=== PATIENT | male | born 1965 | race Hispanic/Latino ===

== ENCOUNTER 2016-12-22 10:46 | Emergency (ER) | payer SELFPAY ==
[2016-12-22 11:17] LABS: #Eosinphils 0.2 thou/uL (0.0-0.7); #Monocytes 0.6 thou/uL (0.11-0.59); #Neutrophils 5.6 thou/uL (1.40-6.50); %Basophils 0.2 % (0.0-1.0); %Eosinophils 1.9 % (0.0-10.0); %Lymphocytes 31.8 % (21.0-51.0); %Monocytes 6.4 % (0.0-10.0); Hematocrit 42.7 % (42.0-52.0); Mean Platelet Volume 7.5 fL (7.4-10.4); Red Blood Cell (RBC) Count 4.94 mill/uL (4.70-6.10); White Blood Cell (WBC) Count 9.3 thou/uL (4.8-10.8)
[2016-12-22 11:45] LABS: Troponin I Less than 0.010 ng/mL (< 0.028)
[2016-12-22 11:47] LABS: ALT (SGPT) 29 U/L (8-55); AST (SGOT) 19 U/L (5-34); Alkaline Phosphatase 87 U/L (40-150); Anion Gap 15 mmol/L (10-20); BUN (Urea Nitrogen) 21 mg/dL (8.9-20.6); Bilirubin, Total 0.5 mg/dL (0.2-1.2); CK (CPK) 234 U/L (30-200); Calc. Creatinine Clearance 0 mL/min (70-130); Calcium 9.7 mg/dL (7.8-10.44); Carbon Dioxide 31 mmol/L (22-29); Chloride 97 mmol/L (98-107); Estimated GFR-MDRD 79; Globulin 3.8 g/dL (2.4-3.5); Lipase 25 U/L (8-78); Protein, Total 7.9 g/dL (6.0-8.3)
[2016-12-22] MEDS ORDERED: Potassium Chloride 20 MEQ TAB ONE (12:04)
--- NOTE | 2016-12-22 12:04 | RAD ---
SINGLE VIEW OF THE CHEST: Comparison: 12-07-13 History: Chest pain and tightness that started on the right side and has moved to the left side of t he chest with left arm numbness. FINDINGS: Single view of the chest shows a normal sized cardiomediastinal silhouette. There is no evidence of consolidation, mass, or pleural effusion. The bones are unremarkable. IMPRESSION: No evidence of acute cardiopulmonary disease. POS: [facility]
[2016-12-22 14:21] LABS: Troponin I Less than 0.010 ng/mL (< 0.028)
== END 2016-12-22 14:46 | disposition home or self-care (01) ==
LOC: ERS 10:46
DX: E87.6 Hypokalemia (principal); I10 Essential (primary) hypertension
CPT/HCPCS: 36415; 71010; 80053; 82553; 83690; 83880; 84484; 85025; 93005; 94760; 96360